=== PATIENT | female | born 1975 | race African-American/Black ===

== ENCOUNTER 2019-06-14 23:01 | Emergency (ER) | payer OTHER ==
[~2019-06-14] VITALS: Ht 172.7 cm; Wt 101.6 kg
[2019-06-14 23:20] VITALS: BP 139/92; Ht 172.7 cm; Wt 101.6 kg
== END 2019-06-15 00:56 | disposition left against medical advice (07) ==
LOC: ED 23:01
DX: Z53.21 Procedure and treatment not carried out due to patient leaving prior to being seen by health care provider (principal)